=== PATIENT | male | born 1985 | race Caucasian/White ===

== ENCOUNTER 2024-06-17 21:08 | Emergency (ER) | payer MEDICAID, SELFPAY ==
[2024-06-17 21:11] VITALS: BP 144/97; PULSE 68; RESP 16; TEMP 36.9; O2SAT 98
--- NOTE | 2024-06-17 21:15 | NUR.NOTE ---
Nursing Note: [facility] called prior to the pt arrival. Tonight they were called for the pt that was delusional and hearing voices to harm himself. He mentioned wanting to the way of a samurai also that anyone who is smoking near him will explode. The pt was driven in by his parents.
[2024-06-17] MEDS: OLANZapine 5 MG TAB PO (21:29)
--- NOTE | 2024-06-17 21:42 | PDOC.MHCN_ITS ---
Date of service: 06/17/24 Time of Service: 20:00 Mental Health Emergency Note Release [facility] release signed:: Yes Reason for Visit Corrie is presenting to [facility] to await voluntary inpatient treatment after being seen by this advertising writer at the [facility] In the last 2 weeks has the pt presented for ES prior to today?: Unknown Client Information Client is: New Well Housed: Yes Non Suicidal Self Injury Current: No History: No Safety Risk/Harm to Self or Others Current Ideation to Harm Self or Others: No Risk: Does risk to harm exist?: No Risk: N/A Duty to warn indicated: No Asssessment/Mental Status Appearance: Unremarkable Attitude: Cooperative Behavior: Unremarkable Speech: Normal Affect: Cogruent with mood Mood: Stressed Thought process: Tangential Hallucinations: yes, Auditory Delusions: yes, Persectory/Paranoid Attention: Unremarkable Perception: Not impaired Orientation: Fully orientated Memory: Intact Insight: Fair Judgement: Fair Neurovegetative Symptoms Sleep: Decrease Appetitie: Decrease Interests: No change Energy: No change Libido: Not applicable Substance Use: Do you use nicotine?: No Have you used substances in the last 7 days?: No Additional Issues: Assaultive/Threatening Behavior: No Medical Concerns: No Client engaged in active self harm w/weapon: No Threatening to run away: No Child reported abuse/neglect: No Voluntarily presenting for services: Yes Domestic violence is a concern: No Extreme Psychosis or extreme behavior is present: Yes Impression Corrie presents to this advertising writer sitting in a chair at the [facility], Corrie is in street clothes, and is calm and cooperative. Corrie presents very tangential, delusional, and not able to answer questions from this advertising writer or PSS Edwards very well. Corrie reports he is having a meltdown, he does not know what to do but he is being told and shown he needs to . Corrie reports that he fears the safety of himself and his family. Corrie feels that his house is bugged, people are out to kill him, there are video cameras watching him, and people following him. Corrie believes people have followed him from his home to his parents home which he reports is also bugged and he is being watched. Corrie reported that the other day he was speaking of his mom's horses and he got a call that night that the horse . Corrie reports people have been driving by yelling, Corrie reports he cannot identify what they are saying and that he believes his neighbors would be able to hear this but he has not discussed this with them as he thinks they are apart of the want for Corrie to not be alive. Crorie reports that he continues to see animals on the side of the road and hears people calling him ' meat'.Corrie disclosed at his last therapy appointment he walked to the bathroom and he saw a piece of hamburger on the ground which was a sign that he was meat. Corrie also disclosed people have cameras in house watching him masterbating in his chair. Corrie reports he then saw a similar chair smashed on the side of the road which is another sign he should not be alive. Corrie believes he deserves a Samari and that there is a group of people out to get him. Corrie thinks he has an ultimatum to end his own life or someone else will kill him. Corrie disclosed he is not currently on medication as they were not working, Corrie disclosed he does see a counselor and has a psychiatrist- he did not disclose who they are or how often he sees them. Corrie reports he has spent the last few nights at his parents and this is still happening there and it happened on the way to the [place]. Corrie disclosed this has been happening for years. Corrie reports this shit is real, I am seeing it, I am living it, I am not making it up Corrie is frustrated that people do not believe him. Corrie disclosed he is currently a paniagua, he has been having poor sleep, poor appetite . Corrie has two children 10 and 13. corrie identifies his mom and dad as positive supports. Corrie reports he previously was in [facility] [place] for several months in 2018 and he found it beneficial. Corrie reports he needs to disappear. My house is bugged people are watching me I need to get out of here, I need to disappear and never show back up, I don't fucking belong here anymore. Corrie also states the other day he saw the couple from [place] driving down the road as he was going the opposite direction. Corrie is nervous to wait in the hospital for treatment, but is willing to attempt to wait in Zone B. This advertising writer has significant concern for the safety of Corrie and those around him if he were to be released and believes an EE should be considered if he attempts to leave. Corrie disclosed he has some issues with health insurance and this advertising writer and PSS Edwards inform him [facility] can have [facility] work with him to ensure insurance is not a barrier to treatment. Corrie will leave the [place] and be transported to [facility] by his parents Brandi and Pritesh. Corrie signed an JUDE for both of them, they provided NICKIE Edwards a piece of paper with his providers on it that included a previous diagnosis of schizophrenia Plan/Disposition Recommended Disposition: Hospitalization (Referrals will be sent on 06/17 by this advertising writer ) facilities contacted. Plan: Corrie will remain at [facility] until voluntary inpatient treatment can be found Person reported agreement to plan: Yes Reports/communication Outcome discussed with: ED/Personnel
[2024-06-17 21:46] LABS: Abs Immature Grans 0.03 10^3/uL (0.0-0.06); Absolute Basophil Count 0.06 10^3/uL (0.0-0.2); Absolute Eosinophil Count 0.17 10^3/uL (0.0-0.7); Absolute Lymphocyte Count 2.48 10^3/uL (1.2-3.4); Absolute Monocyte Count 0.56 10^3/uL (0.1-0.8); Absolute Neutrophil Count 5.08 10^3/uL (1.2-6.7); Basophils % 0.7 %; HCT 48.1 % (40.0-50.0); HGB 16.4 g/dL (13.5-17.5); Immature Grans % 0.4 %; Lymphocytes % 29.6 %; MCH 31.1 pg (27.0-33.0); MCHC 34.1 % (32.0-36.0); MCV 91 fL (80-95); MPV 11.5 fL (8.0-11.0); Monocytes % 6.7 %; Neutrophils % 60.6 %; Platelet Count 187 10^3/uL (130-400); RBC 5.28 10^6/uL (4.36-5.78); RDW 11.4 % (11.8-14.1); RDW-SD 38.3 fL; WBC 8.38 10^3/uL (4.4-10.8)
[2024-06-17 22:06] LABS: Bilirubin Negative (Negative); Blood Negative (Negative); Clarity Clear (Clear); Glucose Negative (Negative); Ketones Negative (Negative); Leukocyte Esterase Negative (Negative); Nitrite Negative (Negative); Specific Gravity 1.025 (1.005-1.025); Urobilinogen 0.2 mg/dL (Up to 0.2); pH 5.5 (5-8)
--- NOTE | 2024-06-17 22:21 | ED.GENADUL_ITS ---
Discharge Plan Discharge Details Chief Complaint: PsychEval Clinical Impression: Schizophrenia, Suicidal ideations, History of command hallucinations Primary Care Provider: Unknown,Unknown ED Provider: Echo Doty Home Meds and New Rx's Prescriptions: No Action No Known Home Meds HPI General Mode of arrival: ambulatory . Date/Time Provider Initiated Documentation: 06/17/24 21:09 . Limitations to Documentation: no limitations . Information obtained by: patient, family and old records reviewed . HPI Narrative: HPI: This is a 38-year-old male patient with a past medical history significant for schizophrenia, not currently taking any of his medications, presenting for evaluation of suicidal ideation and command hallucinations. The patient reports that he has been hearing voices that are telling him to kill himself by using a sword. He reports that these voices have worsened in severity and he wishes he was so that they would just go away. He reports that he also is concerned that people on the street are following him and are going to kill him. He states that he keeps his door locked at all times to protect himself. He reports that he chews tobacco and occasionally smokes, is not a daily drinker and occasionally uses marijuana. No other substance use reported. He lives alone, but is accompanied on this visit by his parents, who report concern given his decompensation. They state that in 2018 after he was discharged he took his medications for approximately 6 months and then stopped taking them and has been slowly declining over the recent weeks. The patient reports that he made a suicide attempt in 2018, when he was holding a gun in his mouth with a plan to shoot himself. Today other than the command hallucination to use a sword he has not made any plans for how he would harm himself. He has not made any attempts to harm himself, has not taken any extra medications or overdose. Exam: Gen: Awake and alert, in no apparent distress HEENT: Non-icteric sclera, PERRL Neck: Supple Lungs: No apparent respiratory distress, normal respiratory effort. CV: Appears well perfused Abdomen: Non-distended MSK: Moves 4 extremities without apparent limitation in ROM Skin: Visualized skin without rashes, cyanosis. Neuro: Normal Gait, no obvious focal deficits or facial asymmetry. Speaks in full, clear sentences. Psych: Blunted affect, flat. Suicidal ideation, endorsing auditory hallucinations and command hallucinations. MDM: This is a 38-year-old male patient presenting for evaluation of command hallucinations and suicidal ideation. Differential includes but is not limited to decompensated schizophrenia, primary psychiatric disturbance, certainly considered intoxication and withdrawal syndromes, though this is less consistent with the patient's history and physical examination. He has not been evaluated in some time, and so metabolic and electrolyte derangements, hypothyroidism, infectious pathologies were considered though I feel that these are less likely contributors. We will obtain medical screening labs to include CBC, CMP, TSH, magnesium, urinalysis, and UDS. The patient is amenable to taking a dose of Zyprexa, which will be provided orally. At this time, the patient is voluntary, and when it was presented to him that the safest thing to do would be to stay in the hospital, he states I guess. If this patient was to try to leave the hospit al, I would consider placing him on an involuntary EE hold due to his command hallucinations and his history of lethal means during a prior attempt. The patient was placed on a one-to-one patient's safety watch. ED Course: I independently interpreted the laboratory studies, which show no significant leukocytosis, anemia, or thrombocytopenia. The chemistry panel is without evidence of electrolyte abnormality, kidney dysfunction, or liver injury. Urinalysis not infectious. UDS negative. The patient was medically cleared for zone B. He was signed out to the oncoming provider prior to final disposition. Echo Doty MD Related Data Home Medications ?Medication ?Instructions ?Recorded ?Confirmed Unknown [No Known Home Meds] 06/17/24 06/17/24 Allergies Allergy/AdvReac Type Severity Reaction Status Date / Time No Known Allergies Allergy Unverified 06/17/24 21:18 General Stated Complaint: PsychEval SLIME: 2 Course Vital Signs Vital signs: Vital Signs Temperature 36.9 C 06/17/24 21:11 Pulse 68 06/17/24 21:11 Respiratory Rate 16 06/17/24 21:11 Blood Pressure 144/97 H 06/17/24 21:11 Pulse Oximetry 98 06/17/24 21:11 Temperature 36.9 C 06/17/24 21:11 Pulse 68 06/17/24 21:11 Respiratory Rate 16 06/17/24 21:11 Blood Pressure 144/97 H 06/17/24 21:11 Pulse Oximetry 98 06/17/24 21:11 Oxygen Delivery Method Room Air 06/17/24 21:11 Oxygen Flow Rate 0 06/17/24 21:11 Pain Level 0 06/17/24 21:11 Lab/Test Results Lab/Test Results: Laboratory Tests Range/Units 06/17/24 06/17/24 21:35 21:59 WBC (4.4-10.8) 10^3/uL 8.38 RBC (4.36-5.78) 10^6/uL 5.28 Hgb (13.5-17.5) g/dL 16.4 Hct (40.0-50.0) % 48.1 MCV (80-95) fL 91 MCH (27.0-33.0) pg 31.1 MCHC (32.0-36.0) % 34.1 RDW (11.8-14.1) % 11.4 L Plt Count (130-400) 10^3/uL 187 MPV (8.0-11.0) fL 11.5 H Immature Gran % % 0.4 Neutrophils % % 60.6 Lymphocytes % % 29.6 Monocytes % % 6.7 Eosinophils % % 2.0 Basophils % % 0.7 Nucleated RBC % (0.0-0.3) % 0.0 Absolute Neutrophils (1.2-6.7) 10^3/uL 5.08 Absolute Lymphocytes (1.2-3.4) 10^3/uL 2.48 Absolute Monocytes (0.1-0.8) 10^3/uL 0.56 Absolute Eosinophils (0.0-0.7) 10^3/uL 0.17 Absolute Basophils (0.0-0.2) 10^3/uL 0.06 Urine Color (Yellow) Yellow Urine Clarity (Clear) Clear Urine pH (5-8) 5.5 Ur Specific [place] (1.005-1.025) 1.025 Urine Protein (Neg-Trace) mg/dL Negative Urine Ketones (Negative) mg/dL Negative Urine Blood (Negative) Negative Urine Nitrite (Negative) Negative Urine Bilirubin (Negative) Negative Urine Urobilinogen (Up to 0.2) mg/dL 0.2 Ur Leukocyte Esterase (Negative) Negative Urine Glucose (Negative) mg/dL Negative Medical Decision Making Quality:SDOH Health Related Social Needs: Health related social needs feeling lonely/isolated (Z 60.8) PFSH All Active Problems (Updated 06/18/24 @ 00:00 by Echo Doty MD) History of command hallucinations (Acute) Suicidal ideations (Acute) Schizophrenia (Chronic) Social History Smoking/Tobacco Use Status: Current-Occasional Tobacco Type: smokeless tobacco Smoking risk assessment performed?: Yes Alcohol Intake: current Alcohol Intake frequency: a few times a month Drug use: Occasionally Substance use type: marijuana Housing: house Do you feel safe at home: Yes Do you feel safe in your relationship?: Yes
[2024-06-17 22:29] LABS: ALT 52 U/L (16-63); AST 23 U/L (15-37); Albumin 4.5 g/dL (3.4-5.0); Alkaline Phosphatase 102 U/L (46-116); Anion Gap 5.2 mmol/L (3-11); BUN 19 mg/dL (7-18); Bilirubin, Total 0.84 mg/dL (0.2-1.0); CO2 30.8 mmol/L (21.0-32.0); CREATININE 1.3 mg/dL (0.70-1.30); Calcium 9.5 mg/dL (8.5-10.1); Chloride 104 mmol/L (98-107); Estimated GFR 71.22 (mL/min/1.73m2); Glucose 97 mg/dL (74-106); Potassium 4.1 mmol/L (3.5-5.1); Sodium 140 mmol/L (136-145); TSH (W/Ref FT4) 2.19 uIU/mL (0.36-3.74); Total Protein 7.9 g/dL (6.4-8.2)
[2024-06-17 22:34] LABS: *AMPHETAMINES SCREEN URINE Negative (Negative); *BARBITURATES SCREEN URINE Negative (Negative); *BENZODIAZEPINES SCREEN URINE Negative (Negative); Cannabinoids THC Negative (Negative); Cocaine Screen,Urine Negative (Negative); METHADONE URINE SCREEN Negative (Negative); OPIATES URINE SCREEN Negative (Negative)
[2024-06-17 22:35] LABS: Tricyclic Antidepressants Negative (Negative)
--- NOTE | 2024-06-18 08:08 | W.EDPROG ---
Date of service: 06/18/24 Time of Service: 08:09 Medical Decision Making I received signout on this 38-year-old male with history of schizophrenia in the emergency department in the setting of hallucinations. Patient is medically cleared. He has an EE that has been signed but not yet activated. He took olanzapine last night and has been ordered for 10 additional milligrams of olanzapine today. He has a regular diet on safety tray. Will update documentation as clinically warranted and signed patient out to the oncoming evening provider. 4:26 PM No active behavioral issues last shift. Will sign patient out to the [facility] evening provider, Dr. More. Quality:SDOH Health Related Social Needs: Health related social needs feeling lonely/isolated (Z60.8) Discharge Plan Discharge Details Chief Complaint: PsychEval Clinical Impression: Schizophrenia, Suicidal ideations, History of command hallucinations Primary Care Provider: Unknown,Unknown ED Provider: Reji Deutsch Home Meds and New Rx's Prescriptions: No Action No Known Home Meds
--- NOTE | 2024-06-18 08:29 | CMSP_ITS ---
Date of service: 06/18/24 Time of Service: 08:31 Care Management Safety Plan Status Status: Voluntary Reason for Wait Reason for Wait: Inpatient Admission Safety Plan Safety Plan: VOLUNTARY FOR INPATIENT PSYCHIATRIC STABILIZATION.? Patient is appropriate in all interactions since arriving at [facility]; Pt has demonstrated appropriate coping and communication skills, has articulated his or her needs and concerns and is fully engaged during staff interactions. Safety plan has been established with patient, and care team, to adhere to patient goals, identify restrictions based on behavioral status, address nutrition, and determine allowed personal belongings, tools for hygiene and personal care. Determine level of activity including ambulation, level of supervision, visitors, and determine privileges based on behaviors and level of engagement by pt. Archie is admitted to [facility] while he awaits inpatient psych treatment at an accepting facility. No insurance and is ineligible for Medicaid. Alternate coverage ie) BC/BS or MVP is not available to him until . Per [facility] at [facility]. His mother Brandi will attempt to locate his tax forms for CHW at [facility], to verify. Sudhir and Yosef take patients without healthcare coverage, per [facility] and outreach will be made. Archie has Jury Duty on Monday and will need a letter to support his absence. VOLUNTARY SAFETY PLAN: 1. Will remain on suicide precautions, in paper clothes 2. Will remain in [facility] under direct supervision of one-on-one staff at all times provided by [employer]; CARY, OVERLOCK COLLAR SETTER core analyst. 3. May have paper cups, plates, finger foods as well as a cardboard spoon with which to eat meals. 4. Follow [facility] Management of the Admitted Behavioral Health Patient policy. 5. Shower available in [facility] without restriction. 6. Personal belongings-soft items permitted at RN discretion. 7. Visitors- at RN discretion. 8. Activities: soft cart items approved per RN discretion. 9.? Bathroom available in [facility] without restriction. 10. Phone: limited to [facility] cordless phone at RN discretion. Due to VOLUNTARY status, if patient wishes to leave [facility], staff will contact [facility] Crisis Screener ([phone]) and Paper Pattern Inspector ([phone]) as soon as possible. In the event of elopement, notify [facility] Police ([phone]). Patient is currently voluntarily at [facility] and seeking inpatient admission when a bed becomes available. [facility] Frontline Radio Message Router will continue seeking placement. Please contact the Paper Pattern Inspector ([phone]) and [facility] Radio Message Router ([phone]) for any needed changes in the Safety Plan. Safety plan has been provided to interdepartmental care team.
[2024-06-18] MEDS: OLANZapine 10 MG TAB PO (10:11)
[2024-06-18 10:12] VITALS: BP 125/87; PULSE 78; RESP 16; TEMP 35.3; O2SAT 99
--- NOTE | 2024-06-18 22:29 | ED.PROG_ITS ---
Date of service: 06/18/24 Time of Service: 16:30 Medical Decision Making This patient was signed out to me. Please see previous notes for H&P and initial eval. In brief, 38yo M with schizophrenia presenting with SI and command hallucinations. Medically cleared, pending voluntary placement. Meets EE criteria should he wish to leave. No acute events this evening. Will be signed out to oncoming physician, plan remains as above. Quality:SDOH Health Related Social Needs: Health related social needs feeling lonely/isolated (Z 60.8) Discharge Plan Discharge Details Chief Complaint: PsychEval Clinical Impression: Schizophrenia, Suicidal ideations, History of command hallucinations Primary Care Provider: Unknown,Unknown ED Provider: Ca More Home Meds and New Rx's Prescriptions: No Action No Known Home Meds
--- NOTE | 2024-06-19 06:42 | ED.PROG_ITS ---
Date of service: 06/19/24 Time of Service: 06:42 Medical Decision Making Patient remains in the ED pending voluntary placement for management of his schizophrenia for which she has not been taking medications. No issues on the overnight shift. Quality:SDOH Health Related Social Needs: Health related social needs feeling lonely/isolated (Z 60.8) Discharge Plan Discharge Details Chief Complaint: PsychEval Clinical Impression: Schizophrenia, Suicidal ideations, History of command hallucinations Primary Care Provider: Unknown,Unknown ED Provider: Trevor Tang Home Meds and New Rx's Prescriptions: No Action No Known Home Meds
--- NOTE | 2024-06-19 07:13 | ED.PROG_ITS ---
Date of service: 06/19/24 Time of Service: 07:13 Medical Decision Making Patient here voluntarily for decompensated schizophrenia, no reported issues on prior shift and currently without new acute complaints will continue to monitor until safe disposition found. Quality:SDOH Health Related Social Needs: Health related social needs feeling lonely/isolated (Z 60.8) Discharge Plan Discharge Details Chief Complaint: PsychEval Clinical Impression: Schizophrenia, Suicidal ideations, History of command hallucinations Primary Care Provider: Unknown,Unknown ED Provider: Noe Ricketts Home Meds and New Rx's Prescriptions: No Action No Known Home Meds
--- NOTE | 2024-06-19 08:36 | MHPN_ITS ---
Date of service: 06/18/24 Time of Service: 10:00 Mental Health Emergency Note Release [facility] release signed:: Yes Reason for Visit Client is struggling with his schizophrenia and came to seek help in managing. In the last 2 weeks has the pt presented for ES prior to today?: No Client Information Client is: New Well Housed: Yes Non Suicidal Self Injury Current: Yes, Filled out by previous clinician. History: yes, Filled out by previous clinician. Safety Risk/Harm to Self or Others Current Ideation to Harm Self or Others: Yes to self. Intent: yes, has intent. Plan: yes,has a plan. and to others. Intent: yes, has intent to harm others Plan: yes,has a plan. Risk: Does risk to harm exist?: yes. Risk: Low Risk Duty to warn indicated: No Impression Client is voluntarily seeking inpatient treatment for his schizophrenia. Resources Reosurces reviewed and given:: 988, [facility] and Other Plan/Disposition Recommended Disposition: Hospitalization facilities contacted, Therapy, Psych Screening and Med management. Facilities contacted if Applicable [facility] Not accepted, Other [facility] Not accepted, No bed available [facility] accepted Other [facility] Not accepted, Other, [facility] Not accepted, Other [facility] Not accepted, Other Reports/communication Outcome discussed with: ED/Personnel
[2024-06-19] MEDS: OLANZapine 10 MG TAB PO (09:10)
--- NOTE | 2024-06-19 15:29 | CMSP_ITS ---
Date of service: 06/19/24 Time of Service: 15:30 Care Management Safety Plan Status Status: Voluntary Reason for Wait Reason for Wait: Inpatient Admission and Other (insurance barrier) Safety Plan Safety Plan: VOLUNTARY FOR INPATIENT PSYCHIATRIC STABILIZATION.? Patient is appropriate in all interactions since arriving at [facility]; Pt has demonstrated appropriate coping and communication skills, has articulated his or her needs and concerns and is fully engaged during staff interactions. Safety plan has been established with patient, and care team, to adhere to patient goals, identify restrictions based on behavioral status, address nutrition, and determine allowed personal belongings, tools for hygiene and personal care. Determine level of activity including ambulation, level of supervision, visitors, and determine privileges based on behaviors and level of engagement by pt. VOLUNTARY SAFETY PLAN: 1. Will remain on suicide precautions, in paper clothes 2. Will remain in Zone B under direct supervision of one-on-one staff at all times provided by [employer]; CARY, [employer] retail interior designer. 3. May have paper cups, plates, finger foods as well as a cardboard spoon with which to eat meals. 4. Follow [facility] Management of the Admitted Behavioral Health Patient policy. 5. Shower available in Zone B without restriction. 6. Personal belongings-soft items permitted at RN discretion. 7. Visitors-none at this time, at RN discretion. 8. Activities: soft cart items approved per RN discretion. 9.? Bathroom available in Zone B without restriction. 10. Phone: limited to [facility] cordless phone at RN discretion. Due to VOLUNTARY status, if patient wishes to leave [facility], staff will contact [facility] Crisis Screener ([phone]) and Assembler Brazer ([phone]) as soon as possible. In the event of elopement, notify [facility] Police ([phone]). Patient is currently voluntarily at [facility] and seeking inpatient admission when a bed becomes available. [facility] Frontline Balloon Seller will continue seeking placement. Please contact the Assembler Brazer ([phone]) and [facility] Balloon Seller ([phone]) for any needed changes in the Safety Plan. Safety plan has been provided to interdepartmental care team.
--- NOTE | 2024-06-19 15:36 | PDOC.CMPRO ---
Date of service: 06/19/24 Time of Service: 15:37 Care Management Progress Note Progress Note Text Progress Note Text: LEXX spoke with HERMILA today, who stated that Toney's insurance was approved by the state, therefore he now has [facility] coverage, but it will not show active in the system for 24-48H. CM informed [facility], and contacted [facility], at their request, to provide the information to , including the policy number and the SR number. CM spoke to the financial department at [facility], who stated that they will likely not accept him until his insurance shows active in the system. CM asked for this to be escalated, as it has been approved by [facility], and this is a delay in treatment. The financial reporting consultant stated that she would discuss this with the medical officer psychiatry. Per [facility], Archie remains voluntary; he would be considered for an involuntary hold if he decided not to stay voluntarily. [facility] is considering for admission; safety plan in place. LEXX will continue to follow. Social Determinants of Health Screening Social Determinants of Health last assessed: 06/19/24 Will the Patient Participate in the Screening?: Yes Do you worry about having a steady place to live?: no Problems where you live: no known problems In the past 12 months, have you had to go without electric, gas, oil or water in your home?: no Have you or anyone in your house had to go without enough food to eat?: no Has lack of transportation kept you from medical appointments or from doing things needed for daily living?: no Has anyone in your life made you feel unsafe or unsupported?: no How hard is it for you to pay for the very basics like food, housing, medical care, and heating? Would you say it is:: Not hard at all Do you want help finding or keeping work or a job?: I do not need or want help If for any reason you need help with day-to-day activities such as bathing, preparing meals, shopping, managing finances, etc., do you get the help you need?: I don?t need any help How often do you feel lonely or isolated from those around you?: Often Do you speak a language other than Malay at home?: No Does the patient want assistance with any of the above?: No Health Related Social Needs Health related social needs: feeling lonely/isolated (Z60.8)
--- NOTE | 2024-06-19 20:58 | PDOC.MHPN2 ---
Date of service: 06/19/24 Time of Service: 20:25 Mental Health Emergency Note Release [facility] release signed:: Yes Reason for Visit Client is known to [facility] briefly. Client is awaiting voluntary inpatient treatment In the last 2 weeks has the pt presented for ES prior to today?: Unknown Client Information Client is: New Well Housed: Yes Non Suicidal Self Injury Current: No History: No Safety Risk/Harm to Self or Others Current Ideation to Harm Self or Others: No Risk: Does risk to harm exist?: No Risk: N/A Duty to warn indicated: No Asssessment/Mental Status Appearance: Unremarkable Attitude: Cooperative Behavior: Unremarkable Speech: Normal Affect: Cogruent with mood Mood: Sad, Stressed and Anxious Thought process: Unremarkable Attention: Unremarkable Perception: Not impaired Orientation: Fully orientated Memory: Intact Insight: Fair Judgement: Fair Neurovegetative Symptoms Sleep: No change Appetitie: No change Interests: No change Energy: No change Libido: Not applicable Substance Use: Do you use nicotine?: No Have you used substances in the last 7 days?: No Additional Issues: Assaultive/Threatening Behavior: No Medical Concerns: No Client engaged in active self harm w/weapon: No Threatening to run away: No Child reported abuse/neglect: No Voluntarily presenting for services: Yes Domestic violence is a concern: No Extreme Psychosis or extreme behavior is present: Yes Impression Toney presents to this food writer in paper scrubs, sitting in his hospital bed. Toney was laying down prior to this assessment. Toney reports he is doing okay. Toney presents as guarded, withdrawn, and quiet which is not like how he presented during his initial mobile crisis encounter. Toney is still awaiting voluntary inpatient placement, Toney reports he is looking forward to treatment. Toney reports he does to have much to talk about. Toney reports he had dinner, has been sleeping okay and doing okay, Toney denies SI, HI and nSSI. Toney would not answer the question of if he could hear voices or see things. Toney reported he didn't have anything else to talk about. Plan/Disposition Recommended Disposition: Hospitalization (Awaiting placement due to insurance issue ) facilities contacted. Plan: Toney will remain at [facility] until placement can be secured Person reported agreement to plan: Yes Reports/communication Outcome discussed with: ED/Personnel
--- NOTE | 2024-06-19 22:38 | ED.PROG_ITS ---
Date of service: 06/19/24 Time of Service: 17:00 Medical Decision Making This patient was signed out to me. Please see previous notes for H&P and initial eval. In brief, 38yo M with psychosis. Medically cleared, pending voluntary placement, meets involuntary criteria should he wish to leave. No acute events on my shift. Will be signed out to oncoming physician, plan remains as above. Quality:SDOH Health Related Social Needs: Health related social needs feeling lonely/isolated (Z 60.8) Discharge Plan Discharge Details Chief Complaint: PsychEval Clinical Impression: Schizophrenia, Suicidal ideations, History of command hallucinations Primary Care Provider: Unknown,Unknown ED Provider: [facility] Home Meds and New Rx's Prescriptions: No Action sertraline Patient Comments: unknown dosing amantadine HCl Patient Comments: unknown dosing gabapentin Patient Comments: unknown dosing risperidone Patient Comments: unknown dosing
--- NOTE | 2024-06-20 07:59 | W.EDPROG ---
Date of service: 06/20/24 Time of Service: 07:59 Medical Decision Making Care assumed from off going provider. Patient is a 38-year-old gentleman with past medical history of schizophrenia that is currently pending voluntary inpatient placement for decompensated schizophrenia and paranoia. Patient reports hearing voices telling him to harm himself. Morning patient is medically cleared. He is exhibiting signs of paranoia likely secondary to the agitation being caused by the other patients in the area, but otherwise has not had any issues overnight. [address] Thomas had with nurse practitioner Carly Brewer at [facility], they accepted the patient for placement. Quality:SDOH Health Related Social Needs: Health related social needs feeling lonely/isolated (Z60.8) Discharge Plan Disposition Patient Disposition: Psychiatric Hospital/Unit Specific Psychiatric Facility: [facility] Discharge Details Clinical Impression: Schizophrenia, Suicidal ideations, History of command hallucinations Primary Care Provider: Unknown,Unknown ED Provider: Debbie Tello Home Meds and New Rx's Prescriptions: No Action sertraline Patient Comments: unknown dosing amantadine HCl Patient Comments: unknown dosing gabapentin Patient Comments: unknown dosing risperidone Patient Comments: unknown dosing
[2024-06-20] MEDS: OLANZapine 10 MG TAB PO (08:47)
[2024-06-20 10:00] VITALS: BP 134/78; PULSE 84; RESP 16; TEMP 36.6; O2SAT 98
--- NOTE | 2024-06-20 14:04 | PDOC.CMPRO ---
Date of service: 06/20/24 Time of Service: 14:04 Care Management Progress Note Progress Note Text Progress Note Text: Toney was accepted for inpatient psychiatric stabilization at [facility]. He will transport via [facility] and follow up with the facility providers and plan of care. Social Determinants of Health Screening Social Determinants of Health last assessed: 06/20/24 Will the Patient Participate in the Screening?: Yes Do you worry about having a steady place to live?: no Problems where you live: no known problems In the past 12 months, have you had to go without electric, gas, oil or water in your home?: no Have you or anyone in your house had to go without enough food to eat?: no Has lack of transportation kept you from medical appointments or from doing things needed for daily living?: no Has anyone in your life made you feel unsafe or unsupported?: no How hard is it for you to pay for the very basics like food, housing, medical care, and heating? Would you say it is:: Not hard at all Do you want help finding or keeping work or a job?: I do not need or want help If for any reason you need help with day-to-day activities such as bathing, preparing meals, shopping, managing finances, etc., do you get the help you need?: I don?t need any help How often do you feel lonely or isolated from those around you?: Often Do you speak a language other than Romansh at home?: No Does the patient want assistance with any of the above?: No Health Related Social Needs Health related social needs: feeling lonely/isolated (Z60.8)
--- NOTE | 2024-06-20 16:57 | MHPN_ITS ---
Date of service: 06/20/24 Time of Service: 08:50 Mental Health Emergency Note Release [facility] release signed:: Yes Reason for Visit Archie who goes by Toney with he/him pronouns presented to [facility] today reporting he was having a mental breakdown. Toney is previously known to [facility] via communication logs with [facility] for therapy resources but no other information can be found in his chart. Toney has never had interactions with emergency se rvices or the [facility] prior to 06/17. The client is currently at [facility] ED seeking voluntary inpatient treatment. This personal lines underwriter meets with the client face to face in [facility] zone b for re-assessment. In the last 2 weeks has the pt presented for ES prior to today?: No Impression Toney presents to this personal lines underwriter in paper scrubs, sitting in his hospital bed. Toney was laying down prior to this assessment. Toney reports he is doing okay. Toney presents as guarded, withdrawn, and quiet Toney is still awaiting voluntary inpatient placement, Toney reports he is looking forward to treatment. Toney reports he does to have much to talk about. Toney reports that his appetite and sleep have been good. Toney reports that he is currently endorsing SI due to the voices that he is currently hearing. Plan/Disposition Recommended Disposition: Hospitalization (Pending acceptance at ) facilities contacted. Plan: The client will remain at [facility] ED zone b unit pending placement. After his writers assessment the client has been accepted by [facility] and will be transported this afternoon. Provided the client with information after discharge from inpatient treatment for [facility] and [phone]. Reports/communication Outcome discussed with: ED/Personnel (Verbal given to ED provider and [facility] direct care staffer Karen)
== END 2024-06-20 13:07 ==
PROVIDERS: Emergency Medicine; Emergency Provider Emergency Medicine
DX: F20.9 Schizophrenia, unspecified (principal); R45.851 Suicidal ideations; F17.220 Nicotine dependence, chewing tobacco, uncomplicated; Z60.8 Other problems related to social environment; R44.0 Auditory hallucinations
CPT/HCPCS: 00123; 36415; 80053; 80307; 99285; 81003; 83735; 84443; 85025